=== PATIENT | female | born 1935 | race Caucasian/White ===

== ENCOUNTER 2017-12-03 19:37 | Inpatient (IN) ==
[2017-12-03 21:01] LABS: Basophils % 0.5 % (0.0-0.8); Eosinophils # 0.2 10*3/uL (0.0-0.87); Eosinophils % 3.6 % (0.00-10.9); Hematocrit 30.1 VOL% (35.7-47.0); Hemoglobin 10.3 GM/DL (12.0-16.0); Immature Granulocytes % 0.4 %; Immature Granulocytes Absolute 0.02 #; Lymphocytes # 1.8 10*3/uL (1.4-4.0); Lymphocytes % 31.5 % (21.3-54.2); Mean Corpuscular HGB Conc 34.2 GM/DL (32-36); Mean Corpuscular Hemoglobin 28 PG (27-34); Mean Platelet Volume 10.3 FL (9.6-12.0); Monocytes # 0.5 10*3/uL (0.11-0.8); Monocytes % 8.8 % (1.7-12.7); Neutrophils # 3.1 10*3/uL (1.4-7.4); Neutrophils % 55.2 % (38.7-73.9); Platelet Count 227 T/CUMM (130-400); Red Blood Count 3.67 MC/CUMM (3.8-5.5); Red Cell Distribution Width 13.8 % (9.3-17.3); White Blood Count 5.6 T/CUMM (4-12)
[2017-12-03 21:26] LABS: Alanine Aminotransferase 19 U/L (13-56); Albumin 2.8 G/DL (3.4-5.0); Alkaline Phosphatase 83 U/L (45-117); Aspartate Amino Transferase 15 U/L (0-37); Bilirubin,Total < 0.39 MG/DL (0.2-1.0); Blood Urea Nitrogen 26 MG/DL (7-18); Calcium 8.7 MG/DL (8.5-10.1); Glucose 238 MG/DL (74-106); Osmolality,Calculated 289.5 MOS/KG (273-304); Potassium 4.5 MMOL/L (3.5-5.1); Sodium 139 MMOL/L (136-145); Thyroid Stimulating Hormone 0.259 uIU/ml (0.358-3.74); Total Protein 5.4 G/DL (6.4-8.3); Troponin I Only 0.045 NG/ML (0.00-0.045)
[2017-12-03] MEDS ORDERED: GLUCAGON 1 MG VIAL IM PRN (23:21)
[2017-12-03] MEDS ORDERED: ACETAMINOPHEN 325 MG TABLET PO PRN (23:21)
[2017-12-03] MEDS ORDERED: ONDANSETRON 4 MG/2 ML VIAL IV PRN (23:21)
[2017-12-03] MEDS ORDERED: MAGNESIUM SULF RIDER 2 GM in PREMIX 1 EACH IV PRN (23:21)
[2017-12-03] MEDS ORDERED: DEXTROSE 50% 25 GM/50 ML VIAL IV PRN (23:21)
[2017-12-03] MEDS ORDERED: POTASSIUM CHLORIDE 20 MEQ TABLET PO PRN (23:21)
[2017-12-03] MEDS ORDERED: MAGNESIUM SULF RIDER 4 GM in PREMIX 1 EACH IV PRN (23:21)
[2017-12-04] MEDS: SODIUM CHLORIDE 0.45% 1,000 ML IV SCH ×2 (02:08→19:28)
[2017-12-04] MEDS: INSULIN LISPRO 100 UNIT/ML SUBCUT SCH ×5 (08:02→21:44)
[2017-12-04] MEDS: ASPIRIN EC 81 MG TABLET PO SCH (13:24)
[2017-12-04] MEDS: amLODIPine 10 MG TABLET PO SCH (13:24)
[2017-12-04] MEDS ORDERED: MULTIVITAMIN (CENTRUM) TABLET PO SCH (17:00)
[2017-12-04] MEDS: GLIMEPIRIDE 2 MG TABLET PO SCH (17:30)
[2017-12-04] MEDS: INSULIN REGULAR 100 UNIT/ML SUBCUT SCH ×2 (18:22→21:42)
[2017-12-04] MEDS: metFORMIN 500 MG TABLET PO SCH (21:41)
[2017-12-05] MEDS: GLIMEPIRIDE 2 MG TABLET PO SCH (05:50)
[2017-12-05] MEDS ORDERED: PANTOPRAZOLE 40 MG TABLET PO SCH (06:00)
[2017-12-05] MEDS: INSULIN LISPRO 100 UNIT/ML SUBCUT SCH ×2 (08:17→12:47)
[2017-12-05] MEDS: INSULIN REGULAR 100 UNIT/ML SUBCUT SCH ×2 (08:18→12:48)
[2017-12-05] MEDS ORDERED: CALCIUM (CARBONATE)/VITAMIN D 500 MG-200 UNIT TABLET PO SCH (09:00)
[2017-12-05] MEDS ORDERED: ROSUVASTATIN 20 MG TABLET PO SCH (09:00)
[2017-12-05] MEDS ORDERED: SERTRALINE 50 MG TABLET PO SCH (09:00)
[2017-12-05] MEDS ORDERED: CHOLECALCIFEROL 5,000 UNIT TABLET PO SCH (09:00)
[2017-12-05] MEDS: amLODIPine 10 MG TABLET PO SCH (09:10)
[2017-12-05] MEDS: ASPIRIN EC 81 MG TABLET PO SCH (09:10)
[2017-12-05] MEDS: metFORMIN 500 MG TABLET PO SCH (09:10)
[2017-12-05 14:03] VITALS: BP 151/59
[2017-12-06] MEDS ORDERED: methIMAzole 5 MG TABLET PO SCH (12:35)
== END 2017-12-05 14:42 | disposition home or self-care (01) | DRG 310 ==
LOC: EDBD → EDUNIT# → N.ED 19:37 → N.EDINP 23:21 → N.TELEN 23:36
PROVIDERS: ADMIT Internal Medicine Clinical Cardiac Electrophysiology; ATTEND Internal Medicine Clinical Cardiac Electrophysiology

== ENCOUNTER 2018-11-18 10:10 | Inpatient (IN) ==
[2018-11-18] MEDS ORDERED: ONDANSETRON 4 MG/2 ML VIAL IV STA (10:39)
[2018-11-18 11:43] LABS: Basophils % 0.4 % (0.0-0.8); Eosinophils # 0.1 10*3/uL (0.0-0.87); Hematocrit 33.4 VOL% (35.7-47.0); Hemoglobin 10.8 GM/DL (12.0-16.0); Immature Granulocytes % 0.3 %; Immature Granulocytes Absolute 0.02 #; Lymphocytes # 1.1 10*3/uL (1.4-4.0); Lymphocytes % 15.5 % (21.3-54.2); Mean Corpuscular HGB Conc 32.3 GM/DL (32-36); Mean Corpuscular Hemoglobin 27 PG (27-34); Mean Corpuscular Volume 82.1 FL (87-102); Mean Platelet Volume 10.4 FL (9.6-12.0); Monocytes # 0.4 10*3/uL (0.11-0.8); Monocytes % 5.1 % (1.7-12.7); Neutrophils # 5.5 10*3/uL (1.4-7.4); Neutrophils % 77.7 % (38.7-73.9); Platelet Count 247 T/CUMM (130-400); Red Blood Count 4.07 MC/CUMM (3.8-5.5); Red Cell Distribution Width 15.2 % (9.3-17.3); White Blood Count 7.1 T/CUMM (4-12)
[2018-11-18 12:08] LABS: Alanine Aminotransferase 17 U/L (13-56); Albumin 2.6 G/DL (3.4-5.0); Alkaline Phosphatase 98 U/L (45-117); Aspartate Amino Transferase 17 U/L (0-37); Blood Urea Nitrogen 31 MG/DL (7-18); Calcium 8.3 MG/DL (8.5-10.1); Glucose 255 MG/DL (74-106); Osmolality,Calculated 294.4 MOS/KG (273-304); Potassium 4.8 MMOL/L (3.5-5.1); Sodium 140 MMOL/L (136-145)
[2018-11-18 12:11] LABS: Troponin I 0.071 NG/ML (0.00-0.045)
[2018-11-18 12:24] LABS: Amorphous Crystals,Urine Occasional /HPF (Few); Apearance,Urine CLOUDY (Clear); Bacteria,Urine Many /HPF (Few); Bilirubin,Urine Negative (Negative); Blood, Urine Small mg/dL (Negative); Glucose,Urine (UA) 50 mg/dL (Negative); Ketones,Urine Negative (Negative); Nitrite,Urine Negative (Negative); Protein,Urine >=500 MG/DL; RBC,Urine 30 /HPF (0-4); Squamous Epithelial Cell,Urine Occasional /HPF (0-10); Urine Color Amber (Yellow); Urine Specific Gravity 1.014 (1.001-1.035); Urine Urobilinogen < 2.0 EU/DL (0.2-1.0); WBC,Urine 23 /HPF (0-6)
[2018-11-18] MEDS ORDERED: AMPICILLIN/SULBACTAM 3,000 MG in SODIUM CHLORIDE 0.9% 100 ML IV STA (12:39)
[2018-11-18] MEDS ORDERED: ACETAMINOPHEN 325 MG TABLET PO PRN (13:24)
[2018-11-18] MEDS ORDERED: traMADol 50 MG TABLET PO PRN (13:24)
[2018-11-18] MEDS ORDERED: GLYCERIN ADULT SUPP RECTAL PRN (13:24)
[2018-11-18] MEDS ORDERED: guaiFENesin/DM ER 600-30 MG TABLET PO PRN (13:24)
[2018-11-18 13:25] LABS: INR 0.9; PT Patient Result 10.1 SECS; Partial Thromboplastin Time 25.6 SECS (0-40)
[2018-11-18] MEDS ORDERED: GLUCAGON 1 MG VIAL IM PRN (13:26)
[2018-11-18] MEDS ORDERED: DEXTROSE 50% 25 GM/50 ML SYRINGE IV PRN (13:26)
[2018-11-18] MEDS: ENOXAPARIN 30 MG/0.3 ML SYRINGE SUBCUT SCH (13:55)
[2018-11-18] MEDS ORDERED: hydrALAZINE 20 MG/1 ML VIAL IV STA (14:11)
[2018-11-18 14:50] LABS: Protein/Creatinine Ratio,Urine 5.9 RATIO
[2018-11-18] MEDS: SODIUM CHLORIDE 0.9% 1,000 ML IV SCH (14:50)
[2018-11-18 14:52] LABS: Free T4 (Free Thyroxine) 0.97 NG/DL (0.76-1.46)
[2018-11-18] MEDS: PROPRANOLOL 20 MG TABLET PO SCH ×2 (17:55→20:35)
[2018-11-18] MEDS: GLIMEPIRIDE 2 MG TABLET PO SCH (17:55)
[2018-11-18] MEDS: SERTRALINE 25 MG TABLET PO SCH (17:55)
[2018-11-18] MEDS: INSULIN LISPRO 100 UNIT/ML SUBCUT SCH ×2 (17:55→20:36)
[2018-11-18] MEDS: POLYVINYL ALCOHOL 1.4% OPH SOLN 15 ML BOTTLE BOTH EYES SCH ×2 (19:21→20:30)
[2018-11-18] MEDS: MULTIVITAMIN (OCUVITE) TABLET PO SCH (19:21)
[2018-11-18] MEDS: ATORVASTATIN 40 MG TABLET PO SCH (20:30)
[2018-11-19] MEDS: SODIUM CHLORIDE 0.9% 1,000 ML IV SCH ×3 (02:06→12:09)
[2018-11-19 04:44] LABS: Basophils % 0.5 % (0.0-0.8); Eosinophils # 0.1 10*3/uL (0.0-0.87); Eosinophils % 1.7 % (0.00-10.9); Hematocrit 29.3 VOL% (35.7-47.0); Hemoglobin 9.3 GM/DL (12.0-16.0); Immature Granulocytes % 0.3 %; Immature Granulocytes Absolute 0.02 #; Lymphocytes # 1.6 10*3/uL (1.4-4.0); Lymphocytes % 24.8 % (21.3-54.2); Mean Corpuscular HGB Conc 31.7 GM/DL (32-36); Mean Corpuscular Hemoglobin 26 PG (27-34); Mean Corpuscular Volume 82.8 FL (87-102); Mean Platelet Volume 10.7 FL (9.6-12.0); Monocytes # 0.6 10*3/uL (0.11-0.8); Neutrophils # 4.1 10*3/uL (1.4-7.4); Neutrophils % 63.7 % (38.7-73.9); Platelet Count 220 T/CUMM (130-400); Red Blood Count 3.54 MC/CUMM (3.8-5.5); Red Cell Distribution Width 15.4 % (9.3-17.3); White Blood Count 6.4 T/CUMM (4-12)
[2018-11-19 05:15] LABS: Albumin 2.2 G/DL (3.4-5.0); Bilirubin,Total 0.4 MG/DL (0.2-1.0); Calcium 8.2 MG/DL (8.5-10.1); Osmolality,Calculated 291.8 MOS/KG (273-304); Potassium 4.2 MMOL/L (3.5-5.1); Risk Ratio 3.37; VLDL CHOLESTEROL 28.4 MG/DL
[2018-11-19] MEDS: GLIMEPIRIDE 2 MG TABLET PO SCH ×2 (05:57→14:59)
[2018-11-19] MEDS: INSULIN LISPRO 100 UNIT/ML SUBCUT SCH ×4 (10:55→20:25)
[2018-11-19] MEDS: POLYVINYL ALCOHOL 1.4% OPH SOLN 15 ML BOTTLE BOTH EYES SCH ×4 (10:55→20:23)
[2018-11-19] MEDS: BENZONATATE 100 MG CAPSULE PO PRN (10:57)
[2018-11-19] MEDS: PROPRANOLOL 20 MG TABLET PO SCH ×4 (10:58→20:25)
[2018-11-19] MEDS: CALCIUM (CARBONATE)/VITAMIN D 500 MG-200 UNIT TABLET PO SCH (10:58)
[2018-11-19] MEDS: PANTOPRAZOLE 40 MG TABLET PO SCH (10:58)
[2018-11-19] MEDS: CHOLECALCIFEROL 5,000 UNIT TABLET PO SCH (10:58)
[2018-11-19] MEDS: ASPIRIN EC 81 MG TABLET PO SCH (10:58)
[2018-11-19] MEDS: FERROUS SULFATE 325 MG TABLET PO SCH (10:59)
[2018-11-19] MEDS: ONDANSETRON 4 MG/2 ML VIAL IV PRN ×2 (12:06→22:02)
[2018-11-19] MEDS: cefTRIAXone 1,000 MG in SYRINGE 1 EACH IV SCH (12:07)
[2018-11-19] MEDS: ENOXAPARIN 30 MG/0.3 ML SYRINGE SUBCUT SCH (14:59)
[2018-11-19] MEDS: MULTIVITAMIN (OCUVITE) TABLET PO SCH (19:01)
[2018-11-19] MEDS: ATORVASTATIN 40 MG TABLET PO SCH (20:24)
[2018-11-20] MEDS: ONDANSETRON 4 MG/2 ML VIAL IV PRN (05:45)
[2018-11-20] MEDS: GLIMEPIRIDE 2 MG TABLET PO SCH ×2 (06:00→16:08)
[2018-11-20] MEDS ORDERED: LORazepam 1 MG TABLET PO PRN (06:45)
[2018-11-20] MEDS ORDERED: ASPIRIN EC 325 MG TABLET PO SCH (09:42)
[2018-11-20] MEDS: CHOLECALCIFEROL 5,000 UNIT TABLET PO SCH (11:25)
[2018-11-20] MEDS: PANTOPRAZOLE 40 MG TABLET PO SCH (11:25)
[2018-11-20] MEDS: SERTRALINE 25 MG TABLET PO SCH (11:25)
[2018-11-20] MEDS: FERROUS SULFATE 325 MG TABLET PO SCH (11:25)
[2018-11-20] MEDS: amLODIPine 2.5 MG TABLET PO SCH (11:26)
[2018-11-20] MEDS: CALCIUM (CARBONATE)/VITAMIN D 500 MG-200 UNIT TABLET PO SCH (11:27)
[2018-11-20] MEDS: PROPRANOLOL 20 MG TABLET PO SCH ×4 (11:27→20:03)
[2018-11-20] MEDS: POLYVINYL ALCOHOL 1.4% OPH SOLN 15 ML BOTTLE BOTH EYES SCH ×4 (11:27→20:04)
[2018-11-20] MEDS: ASPIRIN EC 81 MG TABLET PO SCH (11:28)
[2018-11-20] MEDS: BENZONATATE 100 MG CAPSULE PO PRN (11:32)
[2018-11-20] MEDS: cefTRIAXone 1,000 MG in SYRINGE 1 EACH IV SCH (11:36)
[2018-11-20] MEDS: INSULIN LISPRO 100 UNIT/ML SUBCUT SCH ×4 (12:20→20:27)
[2018-11-20] MEDS: SODIUM CHLORIDE 0.9% 1,000 ML IV SCH (12:20)
[2018-11-20] MEDS: CIPROFLOXACIN 500 MG TABLET PO SCH ×2 (16:09→20:02)
[2018-11-20] MEDS: ENOXAPARIN 30 MG/0.3 ML SYRINGE SUBCUT SCH (16:09)
[2018-11-20] MEDS: MULTIVITAMIN (OCUVITE) TABLET PO SCH (18:18)
[2018-11-20] MEDS: ATORVASTATIN 40 MG TABLET PO SCH ×2 (20:02→20:44)
[2018-11-20] MEDS ORDERED: LORazepam 2 MG/1 ML VIAL IV PRN (20:21)
[2018-11-21] MEDS: SODIUM CHLORIDE 0.9% 1,000 ML IV SCH (03:47)
[2018-11-21] MEDS: GLIMEPIRIDE 2 MG TABLET PO SCH (06:07)
[2018-11-21] MEDS: INSULIN LISPRO 100 UNIT/ML SUBCUT SCH ×2 (08:08→12:57)
[2018-11-21] MEDS: CALCIUM (CARBONATE)/VITAMIN D 500 MG-200 UNIT TABLET PO SCH (08:48)
[2018-11-21] MEDS: FERROUS SULFATE 325 MG TABLET PO SCH (08:49)
[2018-11-21] MEDS: SERTRALINE 25 MG TABLET PO SCH (08:49)
[2018-11-21] MEDS: CHOLECALCIFEROL 5,000 UNIT TABLET PO SCH (08:49)
[2018-11-21] MEDS: PROPRANOLOL 20 MG TABLET PO SCH ×2 (08:49→12:57)
[2018-11-21] MEDS: PANTOPRAZOLE 40 MG TABLET PO SCH (08:49)
[2018-11-21] MEDS: amLODIPine 2.5 MG TABLET PO SCH (08:49)
[2018-11-21] MEDS: CIPROFLOXACIN 500 MG TABLET PO SCH (08:49)
[2018-11-21] MEDS: POLYVINYL ALCOHOL 1.4% OPH SOLN 15 ML BOTTLE BOTH EYES SCH ×2 (13:14→15:50)
[2018-11-21] MEDS ORDERED: amLODIPine 5 MG TABLET PO SCH (13:21)
[2018-11-21 15:04] VITALS: BP 168/67
[2018-11-21] MEDS: ENOXAPARIN 30 MG/0.3 ML SYRINGE SUBCUT SCH (15:50)
[2018-11-22] MEDS ORDERED: CLOPIDOGREL 75 MG TABLET PO SCH (09:00)
== END 2018-11-21 15:50 | DRG 68 ==
LOC: N.ED 10:10 → N.EDINP 13:19 → SUATTDRO 13:19 → N.4E 14:13
PROVIDERS: ADMIT Internal Medicine Cardiovascular Disease; ATTEND Internal Medicine

== ENCOUNTER 2021-02-28 13:24 | Inpatient (IN) ==
[2021-02-28 14:26] LABS: Basophils % 0.6 % (0.0-0.8); Eosinophils # 0.1 10*3/uL (0.0-0.87); Eosinophils % 2.7 % (0.00-10.9); Hematocrit 29.8 VOL% (35.7-47.0); Hemoglobin 9.8 GM/DL (12.0-16.0); Immature Granulocytes % 0.2 %; Immature Granulocytes Absolute 0.01 #; Lymphocytes # 1.1 10*3/uL (1.4-4.0); Lymphocytes % 21.7 % (21.3-54.2); Mean Corpuscular HGB Conc 32.9 GM/DL (32-36); Mean Corpuscular Volume 85.9 FL (87-102); Mean Platelet Volume 10.3 FL (9.6-12.0); Neutrophils % 65.8 % (38.7-73.9); Platelet Count 224 T/CUMM (130-400); Red Blood Count 3.47 MC/CUMM (3.8-5.5); Red Cell Distribution Width 14.6 % (9.3-17.3); White Blood Count 5.3 T/CUMM (4-12)
[2021-02-28 14:37] LABS: PT Patient Result 11.4 SECS (9.8-11.9)
[2021-02-28] MEDS ORDERED: FUROSEMIDE 40 MG/4 ML VIAL IV STA (14:40)
[2021-02-28] MEDS ORDERED: cefTRIAXone 1,000 MG in SODIUM CHLORIDE 0.9% 100 ML IV STA (14:41)
[2021-02-28 15:00] LABS: Albumin 2.7 G/DL (3.4-5.0); Bilirubin,Total 0.4 MG/DL (0.2-1.0); Potassium 4.8 MMOL/L (3.5-5.1); Total Protein 5.3 G/DL (6.4-8.2)
[2021-02-28] MEDS ORDERED: DEXTROSE 50% 25 GM/50 ML VIAL IV PRN (15:25)
[2021-02-28] MEDS ORDERED: GLUCAGON 1 MG VIAL IM PRN (15:25)
[2021-02-28] MEDS ORDERED: ONDANSETRON 4 MG/2 ML VIAL IV PRN (15:25)
[2021-02-28] MEDS ORDERED: hydrALAZINE 20 MG/1 ML VIAL IV PRN (15:25)
[2021-02-28] MEDS ORDERED: ALBUTEROL/IPRATROPIUM 3 ML NEB RESP TX PRN (16:04)
[2021-02-28] MEDS: INSULIN LISPRO 100 UNIT/ML SUBCUT SCH ×2 (18:15→20:23)
[2021-02-28] MEDS: SERTRALINE 25 MG TABLET PO SCH (18:26)
[2021-02-28] MEDS: ENOXAPARIN 30 MG/0.3 ML SYRINGE SUBCUT SCH (18:26)
[2021-02-28] MEDS: PIPERACILLIN/TAZOBACTAM 3,375 MG in SODIUM CHLORIDE 0.9% 100 ML IV SCH ×2 (18:26→23:48)
[2021-02-28] MEDS: ATORVASTATIN 80 MG TABLET PO SCH (20:30)
[2021-03-01 06:14] LABS: Basophils % 0.4 % (0.0-0.8); Eosinophils # 0.2 10*3/uL (0.0-0.87); Eosinophils % 3.1 % (0.00-10.9); Hematocrit 27.9 VOL% (35.7-47.0); Hemoglobin 9.4 GM/DL (12.0-16.0); Immature Granulocytes % 0.2 %; Immature Granulocytes Absolute 0.01 #; Lymphocytes # 0.9 10*3/uL (1.4-4.0); Lymphocytes % 18.6 % (21.3-54.2); Mean Corpuscular HGB Conc 33.7 GM/DL (32-36); Mean Corpuscular Volume 85.1 FL (87-102); Mean Platelet Volume 10.5 FL (9.6-12.0); Monocytes % 9.1 % (1.7-12.7); Neutrophils % 68.6 % (38.7-73.9); Platelet Count 225 T/CUMM (130-400); Red Blood Count 3.28 MC/CUMM (3.8-5.5); Red Cell Distribution Width 14.6 % (9.3-17.3); White Blood Count 4.9 T/CUMM (4-12)
[2021-03-01 06:41] LABS: Calcium 8.4 MG/DL (8.5-10.1); Osmolality,Calculated 301.7 MOS/KG (273-304); Potassium 4.5 MMOL/L (3.5-5.1)
[2021-03-01] MEDS: hydroCHLOROthiazide 12.5 MG CAPSULE PO SCH (08:42)
[2021-03-01] MEDS: FERROUS SULFATE 325 MG TABLET PO SCH (08:43)
[2021-03-01] MEDS: CLOPIDOGREL 75 MG TABLET PO SCH (08:43)
[2021-03-01] MEDS: ASPIRIN EC 325 MG TABLET PO SCH (08:43)
[2021-03-01] MEDS: PANTOPRAZOLE 40 MG TABLET PO SCH (08:43)
[2021-03-01] MEDS: INSULIN LISPRO 100 UNIT/ML SUBCUT SCH ×4 (08:44→20:23)
[2021-03-01] MEDS: FUROSEMIDE 40 MG/4 ML VIAL IV SCH (08:45)
[2021-03-01] MEDS: PIPERACILLIN/TAZOBACTAM 3,375 MG in SODIUM CHLORIDE 0.9% 100 ML IV SCH ×3 (08:45→23:22)
[2021-03-01] MEDS ORDERED: metOLazone 5 MG TABLET PO SCH (10:00)
[2021-03-01] MEDS: ENOXAPARIN 30 MG/0.3 ML SYRINGE SUBCUT SCH (16:05)
[2021-03-01] MEDS: ATORVASTATIN 80 MG TABLET PO SCH (20:23)
[2021-03-02 06:02] LABS: Basophils % 0.4 % (0.0-0.8); Eosinophils # 0.3 10*3/uL (0.0-0.87); Hematocrit 29.3 VOL% (35.7-47.0); Hemoglobin 9.3 GM/DL (12.0-16.0); Immature Granulocytes % 0.4 %; Immature Granulocytes Absolute 0.02 #; Lymphocytes # 1.1 10*3/uL (1.4-4.0); Lymphocytes % 21.4 % (21.3-54.2); Mean Corpuscular HGB Conc 31.7 GM/DL (32-36); Mean Corpuscular Volume 86.9 FL (87-102); Mean Platelet Volume 10.6 FL (9.6-12.0); Monocytes % 7.7 % (1.7-12.7); Neutrophils % 64.1 % (38.7-73.9); Platelet Count 232 T/CUMM (130-400); Red Blood Count 3.37 MC/CUMM (3.8-5.5); Red Cell Distribution Width 14.5 % (9.3-17.3); White Blood Count 5.3 T/CUMM (4-12)
[2021-03-02 06:33] LABS: Calcium 8.3 MG/DL (8.5-10.1); Osmolality,Calculated 303.6 MOS/KG (273-304); Potassium 4.3 MMOL/L (3.5-5.1)
[2021-03-02] MEDS: hydroCHLOROthiazide 12.5 MG CAPSULE PO SCH (09:25)
[2021-03-02] MEDS: CLOPIDOGREL 75 MG TABLET PO SCH (09:25)
[2021-03-02] MEDS: ASPIRIN EC 325 MG TABLET PO SCH (09:25)
[2021-03-02] MEDS: FERROUS SULFATE 325 MG TABLET PO SCH (09:25)
[2021-03-02] MEDS: PANTOPRAZOLE 40 MG TABLET PO SCH (09:25)
[2021-03-02] MEDS: FUROSEMIDE 40 MG/4 ML VIAL IV SCH (09:26)
[2021-03-02] MEDS: INSULIN LISPRO 100 UNIT/ML SUBCUT SCH ×4 (09:26→21:18)
[2021-03-02] MEDS: PIPERACILLIN/TAZOBACTAM 3,375 MG in SODIUM CHLORIDE 0.9% 100 ML IV SCH ×3 (09:26→23:26)
[2021-03-02] MEDS: SERTRALINE 25 MG TABLET PO SCH (15:35)
[2021-03-02] MEDS: ENOXAPARIN 30 MG/0.3 ML SYRINGE SUBCUT SCH (15:36)
[2021-03-02] MEDS: ATORVASTATIN 80 MG TABLET PO SCH (21:18)
[2021-03-03 06:13] LABS: Basophils % 0.6 % (0.0-0.8); Eosinophils # 0.3 10*3/uL (0.0-0.87); Eosinophils % 5.9 % (0.00-10.9); Hematocrit 27.2 VOL% (35.7-47.0); Hemoglobin 8.8 GM/DL (12.0-16.0); Immature Granulocytes % 0.6 %; Immature Granulocytes Absolute 0.03 #; Lymphocytes % 20.1 % (21.3-54.2); Mean Corpuscular HGB Conc 32.4 GM/DL (32-36); Mean Corpuscular Volume 86.3 FL (87-102); Mean Platelet Volume 10.4 FL (9.6-12.0); Monocytes % 9.1 % (1.7-12.7); Neutrophils % 63.7 % (38.7-73.9); Platelet Count 206 T/CUMM (130-400); Red Blood Count 3.15 MC/CUMM (3.8-5.5); Red Cell Distribution Width 14.2 % (9.3-17.3); White Blood Count 5.1 T/CUMM (4-12)
[2021-03-03 06:25] LABS: Calcium 8.1 MG/DL (8.5-10.1); Osmolality,Calculated 299.7 MOS/KG (273-304); Potassium 4.3 MMOL/L (3.5-5.1)
[2021-03-03 06:45] LABS: Eosinophils 6 % (0-10); Hypochromasia 1+; Lymphocytes 27 % (20-55); Microcytosis Slight; Ovalocytes Slight; Platelet Estimate Normal; Segmented Neutrophils 55 % (50-85); Total Cells Counted 100
[2021-03-03] MEDS: INSULIN LISPRO 100 UNIT/ML SUBCUT SCH ×4 (08:14→21:19)
[2021-03-03] MEDS: FUROSEMIDE 40 MG/4 ML VIAL IV SCH (09:05)
[2021-03-03] MEDS: PIPERACILLIN/TAZOBACTAM 3,375 MG in SODIUM CHLORIDE 0.9% 100 ML IV SCH ×2 (09:06→15:22)
[2021-03-03] MEDS: FERROUS SULFATE 325 MG TABLET PO SCH (09:06)
[2021-03-03] MEDS: PANTOPRAZOLE 40 MG TABLET PO SCH (09:06)
[2021-03-03] MEDS: ASPIRIN EC 325 MG TABLET PO SCH (09:06)
[2021-03-03] MEDS: hydroCHLOROthiazide 12.5 MG CAPSULE PO SCH (09:06)
[2021-03-03] MEDS: CLOPIDOGREL 75 MG TABLET PO SCH (09:06)
[2021-03-03] MEDS: ENOXAPARIN 30 MG/0.3 ML SYRINGE SUBCUT SCH (15:22)
[2021-03-03] MEDS ORDERED: FUROSEMIDE 40 MG/4 ML VIAL IV ONE (15:23)
[2021-03-03] MEDS ORDERED: FUROSEMIDE 40 MG/4 ML VIAL IV SCH (16:00)
[2021-03-03] MEDS: ESCITALOPRAM 10 MG TABLET PO SCH (21:19)
[2021-03-03] MEDS: ATORVASTATIN 80 MG TABLET PO SCH (21:19)
[2021-03-04] MEDS: PIPERACILLIN/TAZOBACTAM 3,375 MG in SODIUM CHLORIDE 0.9% 100 ML IV SCH ×3 (01:42→15:54)
[2021-03-04 05:33] LABS: Basophils % 0.6 % (0.0-0.8); Eosinophils # 0.3 10*3/uL (0.0-0.87); Hematocrit 27.6 VOL% (35.7-47.0); Lymphocytes # 1.1 10*3/uL (1.4-4.0); Lymphocytes % 22.7 % (21.3-54.2); Mean Corpuscular HGB Conc 32.6 GM/DL (32-36); Mean Corpuscular Volume 85.2 FL (87-102); Mean Platelet Volume 10.1 FL (9.6-12.0); Neutrophils % 60.7 % (38.7-73.9); Platelet Count 208 T/CUMM (130-400); Red Blood Count 3.24 MC/CUMM (3.8-5.5); Red Cell Distribution Width 14.3 % (9.3-17.3)
[2021-03-04 05:56] LABS: Eosinophils 4 % (0-10); Hypochromasia 1+; Lymphocytes 16 % (20-55); Microcytosis 1+; Platelet Estimate Adequate; Segmented Neutrophils 71 % (50-85); Total Cells Counted 100
[2021-03-04 05:57] LABS: Ovalocytes Slight
[2021-03-04 05:58] LABS: Calcium 8.1 MG/DL (8.5-10.1); Osmolality,Calculated 292.1 MOS/KG (273-304)
[2021-03-04] MEDS: INSULIN LISPRO 100 UNIT/ML SUBCUT SCH ×3 (08:06→16:13)
[2021-03-04] MEDS: FERROUS SULFATE 325 MG TABLET PO SCH (08:38)
[2021-03-04] MEDS: FUROSEMIDE 40 MG/4 ML VIAL IV SCH (08:38)
[2021-03-04] MEDS: ASPIRIN EC 325 MG TABLET PO SCH (08:38)
[2021-03-04] MEDS: PANTOPRAZOLE 40 MG TABLET PO SCH (08:38)
[2021-03-04] MEDS: hydroCHLOROthiazide 12.5 MG CAPSULE PO SCH (08:38)
[2021-03-04] MEDS: carvediloL 6.25 MG TABLET PO SCH ×2 (10:40→22:14)
[2021-03-04] MEDS: ENOXAPARIN 30 MG/0.3 ML SYRINGE SUBCUT SCH (15:54)
[2021-03-04] MEDS ORDERED: INSULIN GLARGINE 100 UNIT/ML SUBCUT SCH (21:00)
[2021-03-04] MEDS: ATORVASTATIN 80 MG TABLET PO SCH (22:14)
[2021-03-04] MEDS: ESCITALOPRAM 10 MG TABLET PO SCH (22:15)
[2021-03-05] MEDS: PIPERACILLIN/TAZOBACTAM 3,375 MG in SODIUM CHLORIDE 0.9% 100 ML IV SCH ×2 (00:39→09:27)
[2021-03-05] MEDS: INSULIN LISPRO 100 UNIT/ML SUBCUT SCH ×4 (00:45→12:33)
[2021-03-05 05:43] LABS: Basophils % 0.2 % (0.0-0.8); Eosinophils # 0.2 10*3/uL (0.0-0.87); Eosinophils % 4.3 % (0.00-10.9); Hematocrit 27.5 VOL% (35.7-47.0); Hemoglobin 8.8 GM/DL (12.0-16.0); Immature Granulocytes % 0.2 %; Immature Granulocytes Absolute 0.01 #; Lymphocytes # 1.1 10*3/uL (1.4-4.0); Lymphocytes % 20.8 % (21.3-54.2); Mean Corpuscular Volume 86.2 FL (87-102); Mean Platelet Volume 10.5 FL (9.6-12.0); Neutrophils % 66.5 % (38.7-73.9); Platelet Count 212 T/CUMM (130-400); Red Blood Count 3.19 MC/CUMM (3.8-5.5); Red Cell Distribution Width 14.4 % (9.3-17.3); White Blood Count 5.4 T/CUMM (4-12)
[2021-03-05 06:07] LABS: Calcium 8.1 MG/DL (8.5-10.1); Osmolality,Calculated 298.1 MOS/KG (273-304)
[2021-03-05] MEDS ORDERED: carvediloL 12.5 MG TABLET PO SCH (09:00)
[2021-03-05] MEDS: ASPIRIN EC 325 MG TABLET PO SCH (09:23)
[2021-03-05] MEDS: hydroCHLOROthiazide 12.5 MG CAPSULE PO SCH (09:23)
[2021-03-05] MEDS: FERROUS SULFATE 325 MG TABLET PO SCH (09:23)
[2021-03-05] MEDS: PANTOPRAZOLE 40 MG TABLET PO SCH (09:23)
[2021-03-05] MEDS: FUROSEMIDE 40 MG/4 ML VIAL IV SCH (09:27)
[2021-03-05 11:55] VITALS: BP 195/75
== END 2021-03-05 15:45 | DRG 291 ==
LOC: N.ED 13:24 → SUATTDRO 15:25 → N.EDINP 15:25 → N.TELEN 17:59
PROVIDERS: ADMIT Internal Medicine; ATTEND Internal Medicine

== ENCOUNTER 2021-05-07 11:27 | Inpatient (IN) ==
[2021-05-07] MEDS ORDERED: ALBUTEROL NEB SOLN 5 MG/ML 20 ML/BOTTLE CONT NEB STA (11:49)
[2021-05-07 11:58] LABS: Basophils % 0.2 % (0.0-0.8); Eosinophils # 0.1 10*3/uL (0.0-0.87); Eosinophils % 1.3 % (0.00-10.9); Hematocrit 27.4 VOL% (35.7-47.0); Hemoglobin 8.5 GM/DL (12.0-16.0); Immature Granulocytes % 0.6 %; Immature Granulocytes Absolute 0.04 #; Lymphocytes # 0.8 10*3/uL (1.4-4.0); Lymphocytes % 12.6 % (21.3-54.2); Mean Corpuscular Volume 90.7 FL (87-102); Mean Platelet Volume 10.8 FL (9.6-12.0); Monocytes % 7.8 % (1.7-12.7); Neutrophils % 77.5 % (38.7-73.9); Platelet Count 176 T/CUMM (130-400); Red Blood Count 3.02 MC/CUMM (3.8-5.5); White Blood Count 6.2 T/CUMM (4-12)
[2021-05-07 12:17] LABS: Anisocytosis Slight; Band Neutrophils 1 % (0-10); Lymphocytes 12 % (20-55); Platelet Estimate Normal; Segmented Neutrophils 82 % (50-85); Total Cells Counted 100
[2021-05-07 12:18] LABS: Macrocytosis Slight
[2021-05-07 12:24] LABS: Albumin 2.6 G/DL (3.4-5.0); Bilirubin,Total 0.5 MG/DL (0.2-1.0); Calcium 7.8 MG/DL (8.5-10.1); Osmolality,Calculated 324.3 MOS/KG (273-304); Total Protein 5.8 G/DL (6.4-8.2)
[2021-05-07] MEDS ORDERED: FUROSEMIDE 40 MG/4 ML VIAL IV STA (13:26)
[2021-05-07] MEDS ORDERED: GLUCAGON 1 MG VIAL IM PRN (13:29)
[2021-05-07] MEDS ORDERED: FUROSEMIDE 100 MG/10 ML VIAL ONE (13:39)
[2021-05-07] MEDS ORDERED: ACETAMINOPHEN 325 MG TABLET PO PRN (14:10)
[2021-05-07] MEDS ORDERED: hydrALAZINE 20 MG/1 ML VIAL IV PRN (14:10)
[2021-05-07] MEDS ORDERED: ONDANSETRON 4 MG/2 ML VIAL IV PRN (14:10)
[2021-05-07] MEDS ORDERED: LORATADINE 10 MG TABLET PO PRN (14:14)
[2021-05-07] MEDS ORDERED: AZELASTINE NASAL 137 MCG/SPRAY 30 ML BOTTLE BOTH NARES PRN (14:14)
[2021-05-07] MEDS ORDERED: HEPARIN 5,000 UNIT/1 ML VIAL SUBCUT SCH (14:30)
[2021-05-07] MEDS ORDERED: NON-FORMULARY MEDICATION PO PRN (14:42)
[2021-05-07 14:46] LABS: Bacteria,Urine Many /HPF (Few); Bilirubin,Urine Negative (Negative); Blood, Urine Negative (Negative); Glucose,Urine (UA) Negative (Negative); Hyaline Casts,Urine 7 /LPF (0-3); Ketones,Urine Negative (Negative); Nitrite,Urine Negative (Negative); Protein,Urine 100 MG/DL; RBC,Urine 20 /HPF (0-4); Squamous Epithelial Cell,Urine Occasional /HPF (0-10); Urine Appearance Slightly Hazy (Clear); Urine Color Yellow (Yellow); Urine Specific Gravity 1.011 (1.001-1.035); Urine Urobilinogen < 2.0 EU/DL (0.2-1.0)
[2021-05-07 14:54] LABS: HDL Cholesterol 34 MG/DL (40-60); Risk Ratio 2.38; Thyroid Stimulating Hormone < 0.005 uIU/ml (0.358-3.74); Triglycerides 85 MG/DL (2-150)
[2021-05-07] MEDS: CALCIUM (CARBONATE)/VITAMIN D 600 MG-400 UNIT TABLET PO SCH ×4 (16:38→22:46)
[2021-05-07] MEDS: hydrALAZINE 10 MG TABLET PO SCH ×5 (16:38→22:44)
[2021-05-07] MEDS: INSULIN LISPRO 100 UNIT/ML SUBCUT SCH ×3 (16:51→22:39)
[2021-05-07] MEDS: carvediloL 12.5 MG TABLET PO SCH ×3 (20:48→22:46)
[2021-05-07] MEDS: INSULIN GLARGINE 100 UNIT/ML SUBCUT SCH (20:48)
[2021-05-07] MEDS: ATORVASTATIN 80 MG TABLET PO SCH ×2 (20:48→22:46)
[2021-05-07] MEDS: [UNRECOGNIZED DRUG - OTHER] TOP SCH (20:56)
[2021-05-08 04:49] LABS: Basophils % 0.2 % (0.0-0.8); Eosinophils # 0.1 10*3/uL (0.0-0.87); Hematocrit 25.2 VOL% (35.7-47.0); Hemoglobin 8.1 GM/DL (12.0-16.0); Immature Granulocytes % 0.2 %; Immature Granulocytes Absolute 0.01 #; Lymphocytes # 0.9 10*3/uL (1.4-4.0); Lymphocytes % 17.8 % (21.3-54.2); Mean Corpuscular HGB Conc 32.1 GM/DL (32-36); Mean Corpuscular Volume 88.4 FL (87-102); Mean Platelet Volume 11.2 FL (9.6-12.0); Monocytes % 7.9 % (1.7-12.7); Neutrophils % 72.9 % (38.7-73.9); Platelet Count 164 T/CUMM (130-400); Red Blood Count 2.85 MC/CUMM (3.8-5.5); Red Cell Distribution Width 14.8 % (9.3-17.3); White Blood Count 4.8 T/CUMM (4-12)
[2021-05-08 05:14] LABS: Calcium 8.3 MG/DL (8.5-10.1); Osmolality,Calculated 321.3 MOS/KG (273-304); Potassium 4.9 MMOL/L (3.5-5.1)
[2021-05-08 07:02] LABS: Hypochromasia 1+; Lymphocytes 18 % (20-55); Microcytosis 1+; Segmented Neutrophils 76 % (50-85); Total Cells Counted 100
[2021-05-08 07:03] LABS: Ovalocytes Few; Platelet Estimate Adequate
[2021-05-08 08:10] LABS: Free T4 (Free Thyroxine) 1.64 NG/DL (0.76-1.46)
[2021-05-08] MEDS: INSULIN LISPRO 100 UNIT/ML SUBCUT SCH ×4 (09:00→21:32)
[2021-05-08] MEDS: CALCIUM (CARBONATE)/VITAMIN D 600 MG-400 UNIT TABLET PO SCH ×3 (09:01→21:32)
[2021-05-08] MEDS: INSULIN GLARGINE 100 UNIT/ML SUBCUT SCH ×2 (09:01→21:32)
[2021-05-08] MEDS: ASPIRIN EC 325 MG TABLET PO SCH (09:01)
[2021-05-08] MEDS: carvediloL 12.5 MG TABLET PO SCH ×2 (09:01→21:31)
[2021-05-08] MEDS: hydrALAZINE 10 MG TABLET PO SCH ×3 (09:01→21:32)
[2021-05-08] MEDS: FERROUS SULFATE 325 MG TABLET PO SCH (09:01)
[2021-05-08] MEDS: CLOPIDOGREL 75 MG TABLET PO SCH (09:02)
[2021-05-08] MEDS: PANTOPRAZOLE 40 MG TABLET PO SCH (09:02)
[2021-05-08] MEDS: SERTRALINE 25 MG TABLET PO SCH (09:02)
[2021-05-08] MEDS: FUROSEMIDE 40 MG/4 ML VIAL IV SCH ×2 (09:16→15:56)
[2021-05-08] MEDS: ALBUTEROL 2.5 MG/3 ML NEB RESP TX PRN (09:34)
[2021-05-08] MEDS ORDERED: hydrALAZINE 20 MG/1 ML VIAL IV PRN (13:06)
[2021-05-08] MEDS: ATORVASTATIN 80 MG TABLET PO SCH (21:31)
[2021-05-08] MEDS: [UNRECOGNIZED DRUG - OTHER] TOP SCH (21:32)
[2021-05-09 04:56] LABS: Basophils % 0.2 % (0.0-0.8); Eosinophils # 0.1 10*3/uL (0.0-0.87); Eosinophils % 2.1 % (0.00-10.9); Hematocrit 27.1 VOL% (35.7-47.0); Hemoglobin 8.7 GM/DL (12.0-16.0); Immature Granulocytes % 0.2 %; Immature Granulocytes Absolute 0.01 #; Lymphocytes # 0.9 10*3/uL (1.4-4.0); Lymphocytes % 17.7 % (21.3-54.2); Mean Corpuscular HGB Conc 32.1 GM/DL (32-36); Mean Corpuscular Volume 88.6 FL (87-102); Mean Platelet Volume 10.7 FL (9.6-12.0); Monocytes % 8.8 % (1.7-12.7); Platelet Count 202 T/CUMM (130-400); Red Blood Count 3.06 MC/CUMM (3.8-5.5); Red Cell Distribution Width 14.6 % (9.3-17.3); White Blood Count 4.9 T/CUMM (4-12)
[2021-05-09 05:32] LABS: Calcium 8.3 MG/DL (8.5-10.1); Osmolality,Calculated 329.6 MOS/KG (273-304); Potassium 4.8 MMOL/L (3.5-5.1)
[2021-05-09 05:50] LABS: Hypochromasia 1+; Microcytosis 1+
[2021-05-09 05:51] LABS: Ovalocytes Slight; Platelet Estimate Normal
[2021-05-09] MEDS: INSULIN LISPRO 100 UNIT/ML SUBCUT SCH ×4 (08:02→21:51)
[2021-05-09] MEDS: hydrALAZINE 10 MG TABLET PO SCH ×3 (08:43→21:50)
[2021-05-09] MEDS: ASPIRIN EC 325 MG TABLET PO SCH (08:43)
[2021-05-09] MEDS: SERTRALINE 25 MG TABLET PO SCH (08:43)
[2021-05-09] MEDS: CALCIUM (CARBONATE)/VITAMIN D 600 MG-400 UNIT TABLET PO SCH ×3 (08:44→21:50)
[2021-05-09] MEDS: FUROSEMIDE 40 MG/4 ML VIAL IV SCH ×2 (08:44→16:45)
[2021-05-09] MEDS: INSULIN GLARGINE 100 UNIT/ML SUBCUT SCH ×2 (08:44→21:52)
[2021-05-09] MEDS: FERROUS SULFATE 325 MG TABLET PO SCH (08:44)
[2021-05-09] MEDS: PANTOPRAZOLE 40 MG TABLET PO SCH (08:44)
[2021-05-09] MEDS: CLOPIDOGREL 75 MG TABLET PO SCH (08:44)
[2021-05-09] MEDS: carvediloL 12.5 MG TABLET PO SCH ×2 (08:44→21:50)
[2021-05-09] MEDS: ATORVASTATIN 80 MG TABLET PO SCH (21:50)
[2021-05-09] MEDS: [UNRECOGNIZED DRUG - OTHER] TOP SCH (21:51)
[2021-05-10 04:57] LABS: Basophils % 0.3 % (0.0-0.8); Eosinophils # 0.1 10*3/uL (0.0-0.87); Eosinophils % 1.7 % (0.00-10.9); Hematocrit 27.8 VOL% (35.7-47.0); Hemoglobin 8.6 GM/DL (12.0-16.0); Immature Granulocytes % 0.7 %; Immature Granulocytes Absolute 0.04 #; Lymphocytes # 0.9 10*3/uL (1.4-4.0); Mean Corpuscular HGB Conc 30.9 GM/DL (32-36); Mean Corpuscular Volume 88.3 FL (87-102); Mean Platelet Volume 10.8 FL (9.6-12.0); Monocytes % 7.9 % (1.7-12.7); Neutrophils % 74.4 % (38.7-73.9); Platelet Count 242 T/CUMM (130-400); Red Blood Count 3.15 MC/CUMM (3.8-5.5); Red Cell Distribution Width 14.5 % (9.3-17.3)
[2021-05-10 05:38] LABS: Calcium 8.7 MG/DL (8.5-10.1); Osmolality,Calculated 329.7 MOS/KG (273-304); Potassium 4.7 MMOL/L (3.5-5.1)
[2021-05-10] MEDS ORDERED: methIMAzole 5 MG TABLET PO SCH (09:00)
[2021-05-10] MEDS: CALCIUM (CARBONATE)/VITAMIN D 600 MG-400 UNIT TABLET PO SCH ×3 (09:14→22:39)
[2021-05-10] MEDS: hydrALAZINE 10 MG TABLET PO SCH ×3 (09:14→22:40)
[2021-05-10] MEDS: ASPIRIN EC 325 MG TABLET PO SCH (09:14)
[2021-05-10] MEDS: FERROUS SULFATE 325 MG TABLET PO SCH (09:14)
[2021-05-10] MEDS: CLOPIDOGREL 75 MG TABLET PO SCH (09:14)
[2021-05-10] MEDS: carvediloL 12.5 MG TABLET PO SCH ×2 (09:14→22:40)
[2021-05-10] MEDS: PANTOPRAZOLE 40 MG TABLET PO SCH (09:14)
[2021-05-10] MEDS: SERTRALINE 25 MG TABLET PO SCH (09:15)
[2021-05-10] MEDS: FUROSEMIDE 40 MG/4 ML VIAL IV SCH ×2 (09:16→16:25)
[2021-05-10] MEDS: INSULIN GLARGINE 100 UNIT/ML SUBCUT SCH ×2 (09:17→22:41)
[2021-05-10] MEDS: INSULIN LISPRO 100 UNIT/ML SUBCUT SCH ×4 (09:17→22:40)
[2021-05-10] MEDS: ALBUTEROL 2.5 MG/3 ML NEB RESP TX PRN (11:15)
[2021-05-10] MEDS: BENZONATATE 100 MG CAPSULE PO PRN ×2 (11:51→22:40)
[2021-05-10] MEDS: ATORVASTATIN 80 MG TABLET PO SCH (22:40)
[2021-05-10] MEDS: [UNRECOGNIZED DRUG - OTHER] TOP SCH (22:40)
[2021-05-11 08:25] LABS: Basophils % 0.3 % (0.0-0.8); Eosinophils # 0.1 10*3/uL (0.0-0.87); Eosinophils % 0.8 % (0.00-10.9); Hematocrit 27.9 VOL% (35.7-47.0); Hemoglobin 8.7 GM/DL (12.0-16.0); Immature Granulocytes % 0.6 %; Immature Granulocytes Absolute 0.04 #; Lymphocytes # 0.8 10*3/uL (1.4-4.0); Lymphocytes % 11.3 % (21.3-54.2); Mean Corpuscular HGB Conc 31.2 GM/DL (32-36); Mean Corpuscular Volume 88.6 FL (87-102); Mean Platelet Volume 10.5 FL (9.6-12.0); Monocytes % 6.3 % (1.7-12.7); Neutrophils % 80.7 % (38.7-73.9); Platelet Count 263 T/CUMM (130-400); Red Blood Count 3.15 MC/CUMM (3.8-5.5); Red Cell Distribution Width 14.5 % (9.3-17.3); White Blood Count 6.7 T/CUMM (4-12)
[2021-05-11 08:47] LABS: Calcium 8.9 MG/DL (8.5-10.1); Osmolality,Calculated 331.6 MOS/KG (273-304); Potassium 4.8 MMOL/L (3.5-5.1)
[2021-05-11] MEDS: CALCIUM (CARBONATE)/VITAMIN D 600 MG-400 UNIT TABLET PO SCH ×3 (08:55→22:06)
[2021-05-11] MEDS: PANTOPRAZOLE 40 MG TABLET PO SCH (08:55)
[2021-05-11] MEDS: CLOPIDOGREL 75 MG TABLET PO SCH (08:56)
[2021-05-11] MEDS: FUROSEMIDE 40 MG/4 ML VIAL IV SCH ×2 (08:56→16:27)
[2021-05-11] MEDS: ASPIRIN EC 325 MG TABLET PO SCH (08:56)
[2021-05-11] MEDS: BENZONATATE 100 MG CAPSULE PO PRN ×2 (08:56→22:06)
[2021-05-11] MEDS: hydrALAZINE 10 MG TABLET PO SCH ×3 (08:56→22:06)
[2021-05-11] MEDS: SERTRALINE 25 MG TABLET PO SCH (08:56)
[2021-05-11] MEDS: FERROUS SULFATE 325 MG TABLET PO SCH (08:56)
[2021-05-11] MEDS: INSULIN LISPRO 100 UNIT/ML SUBCUT SCH ×4 (08:57→22:07)
[2021-05-11] MEDS: carvediloL 12.5 MG TABLET PO SCH ×2 (08:57→22:06)
[2021-05-11] MEDS: INSULIN GLARGINE 100 UNIT/ML SUBCUT SCH ×2 (08:58→22:07)
[2021-05-11] MEDS: ATORVASTATIN 80 MG TABLET PO SCH (22:06)
[2021-05-11] MEDS: [UNRECOGNIZED DRUG - OTHER] TOP SCH (22:06)
[2021-05-12 05:41] LABS: Basophils % 0.3 % (0.0-0.8); Eosinophils # 0.1 10*3/uL (0.0-0.87); Eosinophils % 1.7 % (0.00-10.9); Hematocrit 27.8 VOL% (35.7-47.0); Hemoglobin 8.8 GM/DL (12.0-16.0); Immature Granulocytes % 0.4 %; Immature Granulocytes Absolute 0.03 #; Lymphocytes % 14.4 % (21.3-54.2); Mean Corpuscular HGB Conc 31.7 GM/DL (32-36); Mean Corpuscular Volume 88.8 FL (87-102); Mean Platelet Volume 10.4 FL (9.6-12.0); Monocytes % 7.4 % (1.7-12.7); Neutrophils % 75.8 % (38.7-73.9); Platelet Count 250 T/CUMM (130-400); Red Blood Count 3.13 MC/CUMM (3.8-5.5); Red Cell Distribution Width 14.6 % (9.3-17.3); White Blood Count 6.9 T/CUMM (4-12)
[2021-05-12 05:59] LABS: Calcium 8.5 MG/DL (8.5-10.1); Osmolality,Calculated 326.3 MOS/KG (273-304); Potassium 4.5 MMOL/L (3.5-5.1)
[2021-05-12] MEDS: PANTOPRAZOLE 40 MG TABLET PO SCH (09:32)
[2021-05-12] MEDS: ASPIRIN EC 325 MG TABLET PO SCH (09:32)
[2021-05-12] MEDS: FERROUS SULFATE 325 MG TABLET PO SCH (09:32)
[2021-05-12] MEDS: SERTRALINE 25 MG TABLET PO SCH (09:32)
[2021-05-12] MEDS: CLOPIDOGREL 75 MG TABLET PO SCH (09:32)
[2021-05-12] MEDS: hydrALAZINE 10 MG TABLET PO SCH ×2 (09:32→16:00)
[2021-05-12] MEDS: carvediloL 12.5 MG TABLET PO SCH (09:33)
[2021-05-12] MEDS: FUROSEMIDE 40 MG/4 ML VIAL IV SCH ×2 (09:33→15:22)
[2021-05-12] MEDS: CALCIUM (CARBONATE)/VITAMIN D 600 MG-400 UNIT TABLET PO SCH ×3 (09:33→21:12)
[2021-05-12] MEDS: INSULIN LISPRO 100 UNIT/ML SUBCUT SCH ×4 (09:33→21:12)
[2021-05-12] MEDS: INSULIN GLARGINE 100 UNIT/ML SUBCUT SCH ×2 (09:34→21:12)
[2021-05-12] MEDS: [UNRECOGNIZED DRUG - OTHER] TOP SCH (21:12)
[2021-05-12] MEDS: carvediloL 25 MG TABLET PO SCH (21:12)
[2021-05-12] MEDS: hydrALAZINE 25 MG TABLET PO SCH (21:12)
[2021-05-12] MEDS: ATORVASTATIN 80 MG TABLET PO SCH (21:12)
[2021-05-12] MEDS: DEXTROSE 50% 25 GM/50 ML VIAL IV PRN (21:14)
[2021-05-13 05:21] LABS: Basophils % 0.5 % (0.0-0.8); Eosinophils # 0.1 10*3/uL (0.0-0.87); Eosinophils % 1.7 % (0.00-10.9); Hematocrit 29.2 VOL% (35.7-47.0); Hemoglobin 9.2 GM/DL (12.0-16.0); Immature Granulocytes % 1.3 %; Immature Granulocytes Absolute 0.11 #; Lymphocytes # 1.1 10*3/uL (1.4-4.0); Lymphocytes % 12.7 % (21.3-54.2); Mean Corpuscular HGB Conc 31.5 GM/DL (32-36); Mean Platelet Volume 10.5 FL (9.6-12.0); Monocytes % 7.9 % (1.7-12.7); Neutrophils % 75.9 % (38.7-73.9); Platelet Count 264 T/CUMM (130-400); Red Blood Count 3.28 MC/CUMM (3.8-5.5); Red Cell Distribution Width 14.4 % (9.3-17.3); White Blood Count 8.4 T/CUMM (4-12)
[2021-05-13 05:52] LABS: Calcium 8.5 MG/DL (8.5-10.1); Osmolality,Calculated 323.4 MOS/KG (273-304); Potassium 4.3 MMOL/L (3.5-5.1)
[2021-05-13] MEDS: FUROSEMIDE 40 MG/4 ML VIAL IV SCH (09:13)
[2021-05-13] MEDS: INSULIN GLARGINE 100 UNIT/ML SUBCUT SCH ×2 (09:13→21:01)
[2021-05-13] MEDS: INSULIN LISPRO 100 UNIT/ML SUBCUT SCH ×4 (09:13→21:01)
[2021-05-13] MEDS: hydrALAZINE 25 MG TABLET PO SCH (09:14)
[2021-05-13] MEDS: FERROUS SULFATE 325 MG TABLET PO SCH (09:14)
[2021-05-13] MEDS: CALCIUM (CARBONATE)/VITAMIN D 600 MG-400 UNIT TABLET PO SCH ×3 (09:14→21:00)
[2021-05-13] MEDS: SERTRALINE 25 MG TABLET PO SCH (09:14)
[2021-05-13] MEDS: CLOPIDOGREL 75 MG TABLET PO SCH (09:14)
[2021-05-13] MEDS: PANTOPRAZOLE 40 MG TABLET PO SCH (09:14)
[2021-05-13] MEDS: carvediloL 25 MG TABLET PO SCH ×2 (09:14→21:01)
[2021-05-13] MEDS: ASPIRIN EC 325 MG TABLET PO SCH (09:14)
[2021-05-13] MEDS ORDERED: hydrALAZINE 25 MG TABLET PO ONE (11:01)
[2021-05-13] MEDS: methIMAzole 5 MG TABLET PO SCH (13:34)
[2021-05-13] MEDS ORDERED: FUROSEMIDE 40 MG/4 ML VIAL IV ONE (15:41)
[2021-05-13] MEDS: [UNRECOGNIZED DRUG - OTHER] TOP SCH (21:00)
[2021-05-13] MEDS: ATORVASTATIN 80 MG TABLET PO SCH (21:01)
[2021-05-14 05:13] LABS: Basophils % 0.3 % (0.0-0.8); Eosinophils # 0.2 10*3/uL (0.0-0.87); Eosinophils % 3.8 % (0.00-10.9); Hematocrit 26.5 VOL% (35.7-47.0); Hemoglobin 8.5 GM/DL (12.0-16.0); Immature Granulocytes % 0.3 %; Immature Granulocytes Absolute 0.02 #; Lymphocytes # 1.1 10*3/uL (1.4-4.0); Lymphocytes % 19.3 % (21.3-54.2); Mean Corpuscular HGB Conc 32.1 GM/DL (32-36); Mean Corpuscular Volume 86.9 FL (87-102); Mean Platelet Volume 10.6 FL (9.6-12.0); Monocytes % 9.7 % (1.7-12.7); Neutrophils % 66.6 % (38.7-73.9); Platelet Count 241 T/CUMM (130-400); Red Blood Count 3.05 MC/CUMM (3.8-5.5); Red Cell Distribution Width 14.2 % (9.3-17.3); White Blood Count 5.8 T/CUMM (4-12)
[2021-05-14 05:41] LABS: Osmolality,Calculated 320.6 MOS/KG (273-304); Potassium 3.9 MMOL/L (3.5-5.1)
[2021-05-14] MEDS: CLOPIDOGREL 75 MG TABLET PO SCH (09:16)
[2021-05-14] MEDS: BENZONATATE 100 MG CAPSULE PO PRN (09:16)
[2021-05-14] MEDS: CALCIUM (CARBONATE)/VITAMIN D 600 MG-400 UNIT TABLET PO SCH ×3 (09:16→21:40)
[2021-05-14] MEDS: carvediloL 25 MG TABLET PO SCH ×2 (09:16→21:40)
[2021-05-14] MEDS: ASPIRIN EC 325 MG TABLET PO SCH (09:16)
[2021-05-14] MEDS: FUROSEMIDE 40 MG/4 ML VIAL IV SCH (09:17)
[2021-05-14] MEDS: methIMAzole 5 MG TABLET PO SCH (09:17)
[2021-05-14] MEDS: SERTRALINE 25 MG TABLET PO SCH (09:17)
[2021-05-14] MEDS: PANTOPRAZOLE 40 MG TABLET PO SCH (09:17)
[2021-05-14] MEDS: FERROUS SULFATE 325 MG TABLET PO SCH (09:17)
[2021-05-14] MEDS: INSULIN LISPRO 100 UNIT/ML SUBCUT SCH ×4 (09:18→21:41)
[2021-05-14] MEDS: INSULIN GLARGINE 100 UNIT/ML SUBCUT SCH ×2 (09:19→21:40)
[2021-05-14] MEDS: ATORVASTATIN 80 MG TABLET PO SCH (21:40)
[2021-05-14] MEDS: [UNRECOGNIZED DRUG - OTHER] TOP SCH (21:42)
[2021-05-15] MEDS: DEXTROSE 50% 25 GM/50 ML VIAL IV PRN (04:15)
[2021-05-15 05:10] LABS: ABG Base Excess 3.9 MMOL/L (-2.5-2.5); ABG HCO3 27.5 MMOL/L (20-26); ABG Oxygen Saturation 75.4 % (95-100); ABG PCO2 55.7 MM HG (35-48); ABG PH 7.348 (7.35-7.45); ABG PO2 45.1 MM HG (80-95); ABG TCO2 28.4 MMOL/L (23-27); Allen Test Positive
[2021-05-15 05:53] LABS: ABG Base Excess 1.8 MMOL/L (-2.5-2.5); ABG HCO3 26.1 MMOL/L (20-26); ABG PH 7.349 (7.35-7.45); ABG TCO2 25.9 MMOL/L (23-27); Allen Test Positive
[2021-05-15 06:11] LABS: Basophils % 0.3 % (0.0-0.8); Eosinophils # 0.1 10*3/uL (0.0-0.87); Eosinophils % 1.4 % (0.00-10.9); Hematocrit 26.4 VOL% (35.7-47.0); Hemoglobin 8.3 GM/DL (12.0-16.0); Immature Granulocytes % 0.5 %; Immature Granulocytes Absolute 0.03 #; Lymphocytes # 0.6 10*3/uL (1.4-4.0); Lymphocytes % 9.5 % (21.3-54.2); Mean Corpuscular HGB Conc 31.4 GM/DL (32-36); Mean Corpuscular Volume 89.2 FL (87-102); Neutrophils % 85.3 % (38.7-73.9); Platelet Count 234 T/CUMM (130-400); Red Blood Count 2.96 MC/CUMM (3.8-5.5); White Blood Count 6.4 T/CUMM (4-12)
[2021-05-15 07:19] LABS: Calcium 8.1 MG/DL (8.5-10.1); Osmolality,Calculated 323.4 MOS/KG (273-304)
[2021-05-15] MEDS: methIMAzole 5 MG TABLET PO SCH (09:34)
[2021-05-15] MEDS: PANTOPRAZOLE 40 MG TABLET PO SCH (09:34)
[2021-05-15] MEDS: CLOPIDOGREL 75 MG TABLET PO SCH (09:34)
[2021-05-15] MEDS: FERROUS SULFATE 325 MG TABLET PO SCH (09:34)
[2021-05-15] MEDS: ASPIRIN EC 325 MG TABLET PO SCH (09:34)
[2021-05-15] MEDS: CALCIUM (CARBONATE)/VITAMIN D 600 MG-400 UNIT TABLET PO SCH ×3 (09:34→22:04)
[2021-05-15] MEDS: BENZONATATE 100 MG CAPSULE PO PRN ×2 (09:34→22:04)
[2021-05-15] MEDS: SERTRALINE 25 MG TABLET PO SCH (09:35)
[2021-05-15] MEDS: carvediloL 25 MG TABLET PO SCH (09:50)
[2021-05-15] MEDS: FUROSEMIDE 40 MG/4 ML VIAL IV SCH (09:50)
[2021-05-15] MEDS: INSULIN LISPRO 100 UNIT/ML SUBCUT SCH ×4 (09:50→22:02)
[2021-05-15] MEDS: INSULIN GLARGINE 100 UNIT/ML SUBCUT SCH (20:38)
[2021-05-15] MEDS: [UNRECOGNIZED DRUG - OTHER] TOP SCH (22:03)
[2021-05-15] MEDS: ATORVASTATIN 80 MG TABLET PO SCH (22:08)
[2021-05-16 06:25] LABS: Basophils % 0.4 % (0.0-0.8); Eosinophils # 0.3 10*3/uL (0.0-0.87); Hematocrit 27.5 VOL% (35.7-47.0); Hemoglobin 8.6 GM/DL (12.0-16.0); Immature Granulocytes % 0.4 %; Immature Granulocytes Absolute 0.03 #; Lymphocytes # 1.5 10*3/uL (1.4-4.0); Lymphocytes % 17.6 % (21.3-54.2); Mean Corpuscular HGB Conc 31.3 GM/DL (32-36); Mean Corpuscular Volume 88.7 FL (87-102); Monocytes % 7.3 % (1.7-12.7); Neutrophils % 71.3 % (38.7-73.9); Platelet Count 250 T/CUMM (130-400); Red Cell Distribution Width 14.1 % (9.3-17.3); White Blood Count 8.4 T/CUMM (4-12)
[2021-05-16 06:59] LABS: Calcium 8.4 MG/DL (8.5-10.1); Potassium 4.4 MMOL/L (3.5-5.1)
[2021-05-16] MEDS ORDERED: FUROSEMIDE 40 MG/4 ML VIAL IV SCH (09:00)
[2021-05-16] MEDS: CALCIUM (CARBONATE)/VITAMIN D 600 MG-400 UNIT TABLET PO SCH (09:06)
[2021-05-16] MEDS: CLOPIDOGREL 75 MG TABLET PO SCH (09:06)
[2021-05-16] MEDS: FERROUS SULFATE 325 MG TABLET PO SCH (09:06)
[2021-05-16] MEDS: methIMAzole 5 MG TABLET PO SCH (09:06)
[2021-05-16] MEDS: ASPIRIN EC 325 MG TABLET PO SCH (09:06)
[2021-05-16] MEDS: PANTOPRAZOLE 40 MG TABLET PO SCH (09:06)
[2021-05-16] MEDS: SERTRALINE 25 MG TABLET PO SCH (09:06)
[2021-05-16] MEDS: INSULIN LISPRO 100 UNIT/ML SUBCUT SCH ×2 (09:25→12:43)
[2021-05-16] MEDS: INSULIN GLARGINE 100 UNIT/ML SUBCUT SCH (09:25)
[2021-05-16 11:49] VITALS: BP 141/37
== END 2021-05-16 15:03 | DRG 291 ==
LOC: N.ED 11:27 → N.EDINP 13:53 → SUATTDRO 13:53 → N.TELEN 14:37
PROVIDERS: ADMIT Internal Medicine; ATTEND Hospitalist